=== PATIENT | male | born 1980 | race African-American/Black ===

== ENCOUNTER 2018-07-08 20:32 | Emergency (ER) | payer MEDICAID, OTHER ==
[~2018-07-08] VITALS: Ht 172.7 cm; Wt 113.0 kg
[2018-07-08] MEDS ORDERED: DIPHENHYDRAMINE 50MG/ML VIAL IM ONE (21:00)
[2018-07-08] MEDS ORDERED: HALOPERIDOL 5MG TABLET PO ONE (21:00)
[2018-07-08] MEDS ORDERED: LORAZEPAM 2MG/ML CPJ IV ONE (21:00)
[2018-07-08] MEDS ORDERED: HALOPERIDOL LACTATE 5MG/ML VIAL IM ONE ×2 (21:00→21:15)
[2018-07-08] MEDS ORDERED: LORAZEPAM 2MG/ML CPJ ONE (21:27)
[2018-07-08 22:51] LABS: BASOPHILS % 0.4 % (0.0-2.0); EOSINOPHILS % 0.8 % (0.0-5.0); HEMATOCRIT. 41.9 % (42.0-52.0); HEMOGLOBIN. 13.8 g/dL (14.0-18.0); LYMPHOCYTES % 15.2 % (20.0-50.0); MEAN CORPUSCULAR HEMOGLOBIN 27.1 pg (28.0-32.0); MEAN CORPUSCULAR VOLUME 82.2 fL (80.0-94.0); MEAN PLATELET VOLUME 9.2 fl (7.4-10.4); MONOCYTES % 7.9 % (2.0-8.0); NEUTROPHILS % 75.7 % (40.0-76.0); PLATELET 137 x1000/uL (130-400); RED CELL DISTRIBUTION WIDTH 12.8 % (11.6-14.6)
[2018-07-08 22:54] LABS: CHLORIDE 108 mEq/L (98-107)
[2018-07-08 23:00] LABS: ETHANOL BLOOD < 10 mg/dL
[2018-07-09 03:40] LABS: CLARITY URINE CLEAR (CLEAR); COLOR URINE DARK YELLOW (YELLOW); KETONES URINE 2+ (NEGATIVE); LEUKOCYTE ESTERASE URINE NEGATIVE (NEGATIVE); NITRITE URINE NEGATIVE (NEGATIVE); OCCULT BLOOD URINE NEGATIVE (NEGATIVE); PH URINE 5.5 (4.5-8.0); PROTEIN URINE TRACE (NEGATIVE); SPECIFIC GRAVITY URINE 1.037 (1.005-1.030); UROBILINOGEN URINE 0.2 E.U./dL (0.2-1.0)
[2018-07-09 04:28] LABS: *AMPHETAMINES SCREEN URINE NEGATIVE (NEGATIVE); *BARBITURATES SCREEN URINE NEGATIVE (NEGATIVE); *BENZODIAZEPINES SCREEN URINE PRESUMTIVE POSITIVE (NEGATIVE); *COCAINE SCREEN URINE NEGATIVE (NEGATIVE)
[2018-07-09 04:29] LABS: CANNABINOID URINE SCREEN PRESUMTIVE POSITIVE (NEGATIVE); METHADONE URINE SCREEN NEGATIVE (NEGATIVE); OPIATES URINE SCREEN NEGATIVE (NEGATIVE); PHENCYCLIDINE URINE SCREEN NEGATIVE (NEGATIVE)
[2018-07-09 13:11] VITALS: BP 122/70
== END 2018-07-09 13:13 | disposition home or self-care (01) ==
LOC: ER 20:32
DX: F20.9 Schizophrenia, unspecified (principal); F91.8 Other conduct disorders; F31.9 Bipolar disorder, unspecified; F12.10 Cannabis abuse, uncomplicated; D72.829 Elevated white blood cell count, unspecified; R94.5 Abnormal results of liver function studies; Z78.1 Physical restraint status
CPT/HCPCS: 36415; 80053; 80305; 80320; 81003; 85025; 96372; 96374; 99285; J1200; J2060; Z7610; J1630; G0480

== ENCOUNTER 2018-07-14 18:24 | Emergency (ER) | payer BC, MEDICAID ==
[~2018-07-14] VITALS: Ht 172.7 cm; Wt 110.0 kg
[2018-07-14] MEDS ORDERED: HALOPERIDOL LACTATE 5MG/ML VIAL IM ONE ×2 (18:36→18:45)
[2018-07-14] MEDS ORDERED: LORAZEPAM 1MG TABLET PO ONE (18:45)
[2018-07-14] MEDS ORDERED: DIPHENHYDRAMINE 50MG/ML VIAL IM ONE (18:45)
[2018-07-14 21:49] LABS: BASOPHILS % 0.6 % (0.0-2.0); CHLORIDE 107 mEq/L (98-107); EOSINOPHILS % 1.1 % (0.0-5.0); HEMATOCRIT. 37.4 % (42.0-52.0); HEMOGLOBIN. 12.7 g/dL (14.0-18.0); LYMPHOCYTES % 21.7 % (20.0-50.0); MEAN CORPUSCULAR HEMOGLOBIN 27.6 pg (28.0-32.0); MEAN CORPUSCULAR VOLUME 81.3 fL (80.0-94.0); MONOCYTES % 10.3 % (2.0-8.0); NEUTROPHILS % 66.3 % (40.0-76.0); PLATELET 164 x1000/uL (130-400); RED CELL DISTRIBUTION WIDTH 13.3 % (11.6-14.6)
[2018-07-14 21:52] LABS: ETHANOL BLOOD < 10 mg/dL
[2018-07-14 23:53] LABS: *AMPHETAMINES SCREEN URINE NEGATIVE (NEGATIVE); *BENZODIAZEPINES SCREEN URINE NEGATIVE (NEGATIVE); *COCAINE SCREEN URINE NEGATIVE (NEGATIVE); METHADONE URINE SCREEN NEGATIVE (NEGATIVE); OPIATES URINE SCREEN NEGATIVE (NEGATIVE); PHENCYCLIDINE URINE SCREEN NEGATIVE (NEGATIVE)
[2018-07-14 23:54] LABS: *BARBITURATES SCREEN URINE NEGATIVE (NEGATIVE); CANNABINOID URINE SCREEN PRESUMTIVE POSITIVE (NEGATIVE)
[2018-07-15 07:01] VITALS: BP 138/76
== END 2018-07-15 07:23 | disposition home or self-care (01) ==
LOC: ER 18:24
DX: F23 Brief psychotic disorder (principal); F31.9 Bipolar disorder, unspecified; F12.10 Cannabis abuse, uncomplicated; F10.129 Alcohol abuse with intoxication, unspecified; Y90.0 Blood alcohol level of less than 20 mg/100 ml
CPT/HCPCS: 36415; 80048; 80305; 80307; 80320; 80329; 85025; 96372; 99284; J1200; J1630; G0480

== ENCOUNTER 2018-08-26 15:32 | Emergency (ER) | payer BC, MEDICAID ==
[~2018-08-26] VITALS: Ht 180.3 cm; Wt 100.0 kg
[2018-08-26 15:35] VITALS: BP 150/80
== END 2018-08-26 20:57 | disposition left against medical advice (07) ==
LOC: ER 15:32
DX: F32.9 Major depressive disorder, single episode, unspecified (principal); Z53.21 Procedure and treatment not carried out due to patient leaving prior to being seen by health care provider

== ENCOUNTER 2018-09-15 14:08 | Emergency (ER) | payer BC, MEDICAID ==
[~2018-09-15] VITALS: Ht 172.7 cm; Wt 90.0 kg
[2018-09-15 15:15] LABS: BASOPHILS % 0.6 % (0.0-2.0); EOSINOPHILS % 1.9 % (0.0-5.0); HEMATOCRIT. 38.7 % (42.0-52.0); LYMPHOCYTES % 25.5 % (20.0-50.0); MEAN CORPUSCULAR HEMOGLOBIN 27.5 pg (28.0-32.0); MEAN CORPUSCULAR VOLUME 81.5 fL (80.0-94.0); MEAN PLATELET VOLUME 8.8 fl (7.4-10.4); MONOCYTES % 8.4 % (2.0-8.0); NEUTROPHILS % 63.6 % (40.0-76.0); PLATELET 157 x1000/uL (130-400); RED BLOOD CELL COUNT 4.75 mill/uL (4.7-6.1); RED CELL DISTRIBUTION WIDTH 13.3 % (11.6-14.6)
[2018-09-15 15:17] LABS: CHLORIDE 105 mEq/L (98-107)
[2018-09-15 15:21] LABS: ETHANOL BLOOD < 10 mg/dL
[2018-09-15 17:10] VITALS: BP 116/67
== END 2018-09-15 17:15 | disposition home or self-care (01) ==
LOC: ER 14:10
DX: F29 Unspecified psychosis not due to a substance or known physiological condition (principal); D64.9 Anemia, unspecified
CPT/HCPCS: 36415; 80307; 80320; 80329; 99284; G0480